=== PATIENT | female | born 1970 | race Caucasian/White ===

== ENCOUNTER 2017-02-13 08:30 | Emergency (ER) | payer MEDICAID ==
[~2017-02-13] VITALS: Ht 157.5 cm; Wt 83.0 kg
[~2017-02-13 08:30] MED LIST: D-ME118S6 PO; HYDR-3720
[2017-02-13 08:33] VITALS: Ht 157.5 cm; Wt 83.0 kg
[2017-02-13] MEDS ORDERED: IBUP-1542 PO (08:50)
[2017-02-13] MEDS ORDERED: LORA10CA PO (08:50)
[2017-02-13] MEDS ORDERED: BENZ100C70 PO (08:50)
--- NOTE | 2017-02-13 09:17 | ERD ---
ER Documentation Chief Complaint Date/Time DATE: 02/13/17 TIME: 09:13 Chief Complaint Complains of left ear x 3 days HPI 38-year-old female comes in with left-sided jaw pain and swelling that radiates her left ear for 3 days.Pain is sharp, achy, associated with URI symptoms. She has not had any trouble swallowing, voice changes or drooling. She denies fevers or chills. ROS All systems reviewed and are negative except as per history of present illness. Medications Home Meds Active Scripts Benzonatate* (Tessalon Perle*) 100 Mg Capsule, 100 MG PO Q8H Y for COUGH, #30 CAP Prov:KEO FORD PA-C 02/13/17 Loratadine* (Claritin*) 10 Mg Capsule, 10 MG PO DAILY, #14 CAP Prov:KEO FORD PA-C 02/13/17 Ibuprofen* (Motrin*) 600 Mg Tab, 600 MG PO Q6, #30 TAB Prov:KEO FORD PA-C 02/13/17 Dextromethorphan Hb-Promethazine Hcl (Promethazine DM Syrup) 180 Ml Syrup, 5 ML PO Q6H Y for COUGH, #4 OZ Prov:ALONDRA LION NP 10/04/15 Reported Medications Hydrocodone Bit-Acetaminophen* (Randolph*) 7.5-325 Tablet, TID 10/17/13 Allergies Allergies: Coded Allergies: No Known Allergies (Verified Allergy, Mild, 10/04/15) PMhx/Soc History of Surgery: No Anesthesia Reaction: No Hx Neurological Disorder: No Hx Respiratory Disorders: No Hx Cardiac Disorders: No Hx Psychiatric Problems: No Hx Miscellaneous Medical Probl: No Hx Alcohol Use: No (CLEAN 3 YRS) Hx Substance Use: No Hx Tobacco Use: No Smoking Status: Never smoker Physical Exam Vitals Vital Signs Date Time Temp Pulse Resp B/P Pulse Ox O2 Delivery O2 Flow Rate FiO2 02/13/17 08:33 97.9 78 20 109/69 99 Physical Exam General: Well-developed, well-nourished. The patient appears in no acute distress. HEENT: Head is normocephalic, atraumatic. No scleral icterus. Neck: Supple. Nontender. Positive cervical lymphadenopathy in the left side. There is no trismus, ears are normal. Oropharynx is clear. Lungs: Clear to auscultation. Normal air movement. Heart: Regular rate and rhythm. S1 and S2 are normal. No murmurs, gallops, or rubs. Abdomen: Nondistended. Extremities: No clubbing or cyanosis. Moving extremities x 4. No weakness. Neurologic: Alert and oriented 3. No focal deficits. Normal speech and gait. Skin: Normal turgor. No rash or lesions. Procedures/MDM 38-year-old female comes in with lymphadenopathy of the left side of the neck, this is cervical lymphadenopathy without evidence of an abscess, cellulitis, meningitis, deep space infection, neck mass, signs of strep pharyngitis, otitis media, otitis externa, other bacterial infections, Garth angina. It is likely associated with her URI symptoms she has developed a cough for the last few days. She is well appearing, stable for discharge Departure Diagnosis: Primary Impression: Lymphadenopathy Condition: Good Patient Instructions: Lymphangitis, Uri, Viral, No Abx (Adult) Additional Instructions: Llame al doctor MAANA y zaida james HEATHER PARA DENTRO DE 1-2 HE.Dgale a la secretaria que nosotros le instruimos hacer esta heather.Avise o llame si floyd condicin se empeora antes de la heather. Regresa aqui si peor o no mejor. KEO FORD PA-C Feb 13, 2017 09:17
== END 2017-02-13 09:53 | disposition home or self-care (01) ==
LOC: FTE 08:30
DX: R59.0 Localized enlarged lymph nodes (principal)
CPT/HCPCS: 99283